=== PATIENT | male | born 1975 | race Caucasian/White ===

== ENCOUNTER 2016-12-15 10:16 | Emergency (ER) | payer MEDICAID ==
[2016-12-15 10:43] VITALS: BP 170/90
--- NOTE | 2016-12-15 10:51 | ERNOTE ---
Integumentary HPI - Narrative Date of Service: 12/15/16 - General Presenting Symptoms: insect bite - multiple infected Time Seen by Provider: 12/15/16 10:40 Source: patient Exam Limitations: no limitations - Immun/Allergies/Home Medications Immunizations: IMMUNIZATION HX Immunizations Up to Date No History of Influenza Vaccine Yes Hx Pneumococcal Vaccination No Allergies/Adverse Reactions: Allergies Allergy/AdvReac Type Severity Reaction Status Date / Time No Known Allergies Allergy Verified 06/09/12 01:34 Home Medications: HOME MEDICATIONS Cephalexin Monohydrate [Keflex] 500 mg PO QID #40 cap 12/15/16 [Last Taken Unknown] Hydrocortisone [Hydrocortisone 2.5% Cream] 1 appl TP BID #30 gm 12/15/16 [Last Taken Unknown] - History of Present Illness Narrative: Pt. comes in with c/o redness and swelling and not healing of bed bug bites that started a month ago and worsened in the past two weeks. Pt. states taht the bed bugs have been erradicated from his home but he has not improved despite the bed bugs being gone. Pt. denies any fevers, SOB, CP, NVD, alleviating factors, aggravating factors or prehospital treatment but does state that he scratches the bites. Review of Systems - Review of Systems Constitutional: Present: no symptoms reported. Absent: recent illness, fever, chills, weakness, fatigue, malaise EYE: Present: no symptoms reported ENT: Present: no symptoms reported Respiratory: Present: no symptoms reported. Absent: shortness of breath, cough , wheezing Cardiology: Present: no symptoms reported. Absent: chest pain, palpitations, edema Gastrointestinal/Abdominal: Present: no symptoms reported. Absent: nausea, vomiting, diarrhea Genitourinary: Present: no symptoms reported Musculoskeletal: Present: no symptoms reported. Absent: back pain, neck pain, joint pain Skin: Present: rash - diffuse papular on arms and neck. Neurological: Present: no symptoms reported. Absent: headache, dizziness/light- headedness, numbness, tingling All Other Systems: All systems neg except as marked - Patient's Past Medical History Patient History - Medical: No pertinent hx - Immunizations Immunizations Up to Date: No Hx Pneumococcal Vaccination: No History of Influenza Vaccine: Yes Physical Exam - Physical Exam General Appearance: Present: wd/wn, alert, no apparent distress Head Exam: Present: normal inspection, no evidence of injury Eye Exam: Normal inspection: bilateral, PERRL: bilateral, EOMI: bilateral Ears, Nose, Throat: Present: normal ENT inspection, normal pharynx Neck: Present: normal inspection, nontender. Absent: lymphadenopathy (R), lymphadenopathy (L) Respiratory: Present: no respiratory distress, normal breath sounds, no accessory muscle use, chest nontender, lungs clear Cardiovascular/Chest: Present: regular rate, rhythm, no murmur, normal peripheral pulses Back Exam: Present: normal range of motion, no CVA tenderness, no vertebral tenderness Extremity Exam: Present: non-tender, normal range of motion, no edema Neurological Exam: Present: alert, oriented, normal mood/affect, no motor/ sensory deficits Skin Exam: Present: normal color, warm/dry, skin rash - diffuse papular on arms and neck and ears. Mild induration noted around several bites. ED Progress - Vital Signs Patient's Vital Signs:: I have reviewed the patient's vital signs. Departure Clinical Impression: Bedbug bite with infection - Departure Disposition: Home self-care Condition: Good Instructions: Bedbugs, [id number] Additional Instructions: Please apply hydrocortisone cream twice a day as well as taking oral antibiotics. Referrals: Tatum Suarez FNP [Primary Care Provider] - Prescriptions: Cephalexin Monohydrate [Keflex] 500 mg PO QID #40 cap Hydrocortisone [Hydrocortisone 2.5% Cream] 1 appl TP BID #30 gm
--- OUTSIDE RECORDS SUMMARY | 2016-12-15 10:54 | XMS REPORT | Clinical Summary ---
:1975 Author Organization [employer] [place] [address] Care Team Providers Name Role Phone Unavailable Primary Care Provider Unavailable Source Comments This disclosure is being made pursuant to the [employer] program and maynot contain all information available regarding this patient.[employer] Allergies Not on File Current Medications Be aware that medications may not be up to date as of this document. Alwaysverify current medications with the patient. Not on file Active Problems Not on file Social History Tobacco Use Types Packs/Day Years Used Date Never Assessed Sex Assigned at Date Recorded Not on file Last Filed Vital Signs Not on file Plan of Treatment Health Maintenance Due Date Last Done Comments Retired-Pertussis Vaccine Adult 11/14/1994 Retired-Tetanus Vaccine Adult 11/14/1994 Retired-INFLUENZA VACCINE 01/08/2015 Results Not on filefrom Last 3 Months
== END 2016-12-15 10:55 | disposition home or self-care (01) ==
LOC: ER 10:16
DX: S40.862A Insect bite (nonvenomous) of left upper arm, initial encounter (principal); S40.861A Insect bite (nonvenomous) of right upper arm, initial encounter; S10.16XA Insect bite (nonvenomous) of throat, initial encounter; S00.462A Insect bite (nonvenomous) of left ear, initial encounter; S00.461A Insect bite (nonvenomous) of right ear, initial encounter; L08.89 Other specified local infections of the skin and subcutaneous tissue; W57.XXXA Bitten or stung by nonvenomous insect and other nonvenomous arthropods, initial encounter